=== PATIENT | female | born 1985 | race Caucasian/White ===

== ENCOUNTER 2018-05-12 12:22 | Outpatient (CLI) | payer MEDICAID ==
[2018-05-12 13:38] LABS: ADD UMIC YES; UR ASCORBIC ACID NEGATIVE (NEGATIVE); UR BILIRUBIN (Dip) NEGATIVE (NEGATIVE); UR BLOOD (Dip) 1+ mg/dL (NEGATIVE); UR CLARITY CLOUDY (CLEAR); UR COLOR AMBER (YELLOW); UR GLUCOSE (Dip) NEGATIVE (NEGATIVE); UR KETONES (Dip) 1+ mg/dL (NEGATIVE); UR LEUKOCYTE ESTERASE (Dip) 2+ Leu/ul (NEGATIVE); UR MUCUS MANY /HPF (NONE SEEN); UR NITRITE (Dip) NEGATIVE (NEGATIVE); UR NONSQUAMOUS EPITHELIAL CELL 1 /HPF (NONE SEEN); UR RBC 12 /HPF (0-5); UR SPECIFIC GRAVITY (Dip) 1.026 (1.003-1.030); UR SQUAMOUS EPITHELIAL CELL MANY /HPF (FEW); UR TOTAL PROTEIN (Dip) 2+ mg/dl (NEGATIVE); UR UROBILINOGEN (Dip) 1+ mg/dL (NEGATIVE); UR WBC 28 /HPF (0-5)
== END 2018-05-12 14:27 | disposition home or self-care (01) ==
LOC: OBT 12:22 → L-D 12:22 → OBT 14:27
DX: O26.892 Other specified pregnancy related conditions, second trimester (principal); O09.513 Supervision of elderly primigravida, third trimester; Z3A.26 26 weeks gestation of pregnancy
CPT/HCPCS: 76817; 81001; 87086

== ENCOUNTER 2018-05-19 18:03 | Emergency (ER) | payer MEDICAID ==
[2018-05-19] MEDS: ACETAMINOPHEN 500 MG TAB PO (19:24)
== END 2018-05-19 21:23 | disposition home or self-care (01) ==
LOC: FTE 18:03
DX: S40.021A Contusion of right upper arm, initial encounter (principal); W01.0XXA Fall on same level from slipping, tripping and stumbling without subsequent striking against object, initial encounter; Y92.9 Unspecified place or not applicable
CPT/HCPCS: 29105; 73080-RT; 73090-RT; 73110-RT; 73130-RT; 99283-25

== ENCOUNTER 2018-05-23 11:35 | Emergency (ER) | payer MEDICAID | END 2018-05-23 13:37 | disposition home or self-care (01) | LOC: FTE 11:35 | DX: M79.89 Other specified soft tissue disorders (principal) | CPT/HCPCS: 29125; 93971; 99284-25 ==